=== PATIENT | female | born 1940 | race Caucasian/White ===

== ENCOUNTER 2018-03-04 08:43 | Day surgery (SDC) | payer MEDICARE, SELFPAY ==
[2018-03-04 09:42] VITALS: BMI 19.3
[2018-03-04] MEDS: PROPARACAINE 0.5% OPHTH SOL 2 DROPS EYE-OP (09:49)
[2018-03-04] MEDS: CATARACT EYE COMPOUND (10 DROPS/SYRINGE) 3 DROPS EYE-OP (09:50)
--- NOTE | 2018-03-04 10:03 | PM.PREOP ---
Pre-operative Note Interval Note Pre-op Check: History & Physical Reviewed by Physician
[2018-03-04] MEDS: CHONDROIDTIN/SOD HYALURONATE 1.05 ML SYRINGE INTRAOCULA (10:15)
[2018-03-04] MEDS: MOXIFLOXACIN OPHTH DROPS 3 ML BOTTLE 2 DROPS INJ (10:15)
[2018-03-04] MEDS: TRIAMCINOLONE 50 MG/5 ML VIAL INJ (10:15)
[2018-03-04] MEDS: LIDOCAINE JELLY 2% 5 ML 1 APPLIC TOP (10:16)
[2018-03-04] MEDS: TETRACAINE 0.5% OPHTH DROPS 15 ML 2 DROPS EYE-RIGHT (10:17)
[2018-03-04] MEDS: PHENYLEPHRINE/LIDOCAINE 3ML VIAL (OR) EYE-OP (10:17)
[2018-03-04] MEDS: BALANCED SALT IRRIG SOLN NO.2 500 ML, EPINEPHrine 1 MG IRR (10:18)
--- NOTE | 2018-03-04 10:25 | P.OP_ITS ---
Operative Date/Time/Diagnoses - Pre-op diagnosis: Cataract Right eye Post-op diagnosis: same Procedure & Clinicians Procedure: Cataract Surgery Same procedure as scheduled: Yes Surgeon: Perfecto Kline Anesthesia Type: MAC +/- and Sedation Operative Notes Procedure in detail: Patient brought to the operating suite. Tetracaine drops placed in the right eye. Patient was prepped and draped in sterile manner. Wire lid speculum was placed in the eye. Betadine drops were placed on the eye. This was irrigated. Lidocaine jelly was placed on the eye. A paracentesis port was created with a side-port blade. 0.1 mL 1% preservative free lidocaine was injected into the anterior chamber. The anterior chamber was deepened with viscoelastic. 2.6 mm keratome was used to create a temporal clear corneal incision. Cystotome and Utrata forceps were used to create continuous tear capsulorrhexis. Balanced salt solution was used to hydro dissect the nucleus. The phacoemulsification handpiece was inserted and the nucleus was removed using the stop and chop technique. The irrigation aspiration handpiece was inserted and the remaining cortex was removed. Anterior chamber was deepened with viscoelastic. An Gu ZCB00 intraocular lens with a power of 23.5 was injected into the capsular bag. Irrigation aspiration handpiece was inserted and the remaining viscoelastic was removed. Incision was hydrated with balanced salt solution and found to be leak free with pressure with Weck- Kasia sponges. 0.1 mL Vigamox injected anterior chamber. 0.3 mL Kenalog 10 mg was injected subconjunctivally. Lid speculum was removed. The patient left the operating room in excellent condition. Complications: none Condition: stable Disposition: same day surgery
[2018-03-04 10:38] VITALS: BP 151/58; PULSE 53; RESP 16; TEMP 36.6; O2SAT 100
--- NOTE | 2018-03-04 10:58 | SUR.PHASEII ---
pt had tea and applesauce.. no pain, no nausea..shiled on.. instructions reviewed.. pt dressed .. stable gait.. walker returned.. to waiting room awaiting taxi to her hotel.
== END 2018-03-04 10:55 | disposition home or self-care (01) ==
PROVIDERS: PCP Family Medicine; Visit Provider Ophthalmology
DX: H25.11 Age-related nuclear cataract, right eye (principal); F41.9 Anxiety disorder, unspecified; N18.6 End stage renal disease; Z99.2 Dependence on renal dialysis; J45.909 Unspecified asthma, uncomplicated
CPT/HCPCS: J0171; J2250; J3010; J3301

== ENCOUNTER 2018-08-04 16:01 | Emergency (ER) | payer MEDICARE, SELFPAY ==
[2018-08-04 16:04] VITALS: BP 170/47; PULSE 53; RESP 14; TEMP 36.7; O2SAT 100
--- NOTE | 2018-08-04 16:41 | ED.SKABFB ---
HPI - Skin/Abscess/Foreign Bdy General Chief complaint: Skin/Abscess/Foreign Body Stated complaint: dialyis shunt won't stop bleeding Time Seen by Provider: 08/04/18 16:03 Source: patient and EMS Mode of arrival: EMS Limitations: no limitations History of Present Illness HPI narrative: 78-year-old female with history of end-stage renal failure presents from the local dialysis center with a chief complaint of persistent bleeding once the fistula had been de accessed. They applied pressure but she continued to bleed for about 2 hr. She has become a bit fatigued. She had a complete run of her dialysis. She denies the use of blood thinners. Onset (ago): hour(s) Tetanus up to date: yes Location: LUE Relieving factors: none Exacerbating factors: none Related Data Home Medications Medication Instructions Recorded Confirmed ibuprofen 200 mg PO Q6HP PRN #0 04/15/12 08/04/18 alprazolam 2 mg PO DAILY 08/04/18 08/04/18 atorvastatin 40 mg PO DAILY 08/04/18 08/04/18 carvedilol 12.5 mg PO TID 08/04/18 08/04/18 diltiazem HCl [Cartia XT] 120 mg PO DAILY 08/04/18 08/04/18 furosemide 160 mg PO DAILY 08/04/18 08/04/18 Allergies Allergy/AdvReac Type Severity Reaction Status Date / Time iodine Allergy Intermediate Hives Verified 08/04/18 16:08 clams Allergy Unknown Verified 08/04/18 16:08 adhesive tape AdvReac Mild Verified 08/04/18 16:08 codeine AdvReac Mild Nausea Verified 08/04/18 16:08 hydrocodone AdvReac Mild Nausea Verified 08/04/18 16:08 propoxyphene AdvReac Mild Nausea Verified 08/04/18 16:08 Review of Systems Review of Systems All systems reviewed & are unremarkable except as noted in HPI and below Constitutional Denies chills, Denies fever(s), Denies lethargy and Denies weakness Eyes Denies change in vision, Denies eye discharge, Denies irritation and Denies loss of vision ENT Ears, Nose, Mouth, and Throat: Denies change in voice, Denies neck pain and Denies sore throat Cardiovascular Denies chest pain, Denies irregular heart rhythm, Denies lightheadedness, Denies palpitations, Denies dyspnea, Denies dyspnea on exertion and Denies orthopnea Respiratory Denies cough, Denies dyspnea, Denies dyspnea on exertion and Denies wheezing Gastrointestinal Gastrointestinal: Denies abdominal pain, Denies change in bowel habits, Denies diarrhea, Denies nausea and Denies vomiting Genitourinary Denies hematuria, Denies flank pain, Denies urinary incontinence and Denies urinary urgency Musculoskeletal Denies neck pain Integumentary/Breasts Denies pruritus, Denies erythema, Denies rash and Reports wounds Comments: Bleeding from AV fistula Neurologic Denies confusion, Denies loss of vision and Denies weakness Psychiatric Denies anxiety, Denies confusion, Denies depression, Denies homicidal ideation and Denies suicidal ideation Endocrine Denies palpitations Hematologic/Lymphatic Denies easy bruising Allergic/Immunologic Denies wheezing [facility] Surgical History Status post surgery (12/18/10) Social History household members: none Smoking Status: Never smoker Exam Narrative Exam Narrative: GEN: AOx3 and in mild distress EYES: Pupils are equal, round, and reactive to light and accommodation. Extraoccular muscles are intact bilaterally. There is no subconjunctival hemorrhage or exudate. CHEST: Lungs are clear to auscultation bilaterally and free of wheezes, rales, or rhonchi. Heart rate is regular rhythm, there are no murmurs, clicks, rubs, or gallops. There is no chest wall tenderness. ABD: Abdomen is soft and nontender. There is no guarding or rebound. Bowel sounds are normal in all 4 quadrants. There is no mass or organomegaly. EXT: Pressure device in place overlying AV fistula. Thrill present. Distal radius pulse intact, sensation intact, is cap refill less than 2 sec Full painless ROM of all extremities with no loss of sensation or strength. Pressure device removed and small, slow bleeding still noted. SKIN: Warm, pink, and dry. No erythema or rash Initial Vital Signs Initial Vital Signs: Vital Signs Temperature 98.0 F 08/04/18 16:04 Pulse Rate 53 L 08/04/18 16:04 Respiratory Rate 14 08/04/18 16:04 Blood Pressure 170/47 H 08/04/18 16:04 Pulse Oximetry 100 08/04/18 16:04 Procedures Laceration Repair Laceration 1: Site: upper extremity Side (If applicable): left Size (cm): 0.1 Description: other (needle puncture site on fistula) Skin layer closed with: nylon Size (cm): 5-0 Number of sutures: 1 Technique: simple, interrupted Course Orders Ordered: ED Orders 08/04/18 16:39 Complete Blood Count AUTO DIFF Stat Type and Screen Stat Reevaluation(s) Reevaluation #1: very superficial suture placed and hemostasis achieved. She was observed for an hour afterwards before DC Consultations Consultation #1: Call to Nephrology whom recommends either sure seal dressing, which we DO NOT, have or a superficial suture. Vital Signs - 8 hr 08/04/18 16:04 08/04/18 17:00 Temperature 98.0 F Pulse Rate 53 L 52 L Respiratory Rate 14 14 Blood Pressure 170/47 H Blood Pressure [Right Arm] 143/45 H Pulse Oximetry 100 99 MDM - Skin/Abscess/Foreign Bdy Lab Data Result diagrams: 08/04/18 16:39 Lab Results 08/04/18 08/04/18 Range/Units 16:39 16:39 WBC 5.7 (4.5-11.0) X10^3/uL RBC 3.38 L (4.0-5.2) X10^6/uL Hgb 11.2 L (12.0-16.0) g/dL Hct 32.7 L (36-46) % MCV 96.8 (80-100) fL MCH 33.2 (26-34) PG MCHC 34.3 (30-36) % RDW 13.6 (11.6-14.8) % Plt Count 157 (150-400) X10^3/uL Neut % (Auto) 62.0 (50-75) % Lymph % (Auto) 18.1 L (25-40) % [place] % (Auto) 12.6 (3-14) % Eos % (Auto) 5.8 H (2-4) % Baso % (Auto) 1.5 (0-2) % Neut # (Auto) 3600 ([id number]) /uL Blood Type O Positive Antibody Screen Negative Discharge Plan Departure Patient Disposition: Home Clinical Impression: Bleeding, Fistula Discharge Date/Time: 08/04/18 17:32 Interventions: ED Discharge Assessment Last Done: 08/04/18 17:29 Instructions: DI for Post-Surgical Bleeding Activity Restrictions/Additional Instructions: *You have been diagnosed with [ post dialysis bleeding from fistula ] *What to do: *Take medications as directed *Follow up with your primary care provider in 2-3 days, call for an appointment. Let them know you were seen in the Emergency Department and that we ask that you be seen in follow up *Return to ER if you should have any new, worsening or concerning symptoms, bleeding, increasing pain, numbness or tingling distal to your fistula Prescriptions: No Action ibuprofen 200 MG capsule 200 mg PO Q6HP PRN (Reason: Pain, Mild) Qty: 0 RF: 0 atorvastatin 40 mg tablet 40 mg PO DAILY RF: 0 carvedilol 12.5 mg tablet 12.5 mg PO TID RF: 0 alprazolam 1 mg tablet 2 mg PO DAILY RF: 0 furosemide 80 mg tablet 160 mg PO DAILY RF: 0 diltiazem HCl [Cartia XT] 120 mg capsule,extended release 24hr 120 mg PO DAILY RF: 0 Referrals: Carrillo Greene MD [Primary Care Provider] -
[2018-08-04 16:54] LABS: Add Manual Diff / Slide Review NO; Basophils Percent Auto 1.5 % (0-2); Eosinophils Percent Auto 5.8 % (2-4); Hematocrit 32.7 % (36-46); Hemoglobin 11.2 g/dL (12.0-16.0); Lymphocytes Percent Auto 18.1 % (25-40); Mean Corpuscular HGB Conc 34.3 % (30-36); Mean Corpuscular Hemoglobin 33.2 PG (26-34); Mean Corpuscular Volume 96.8 fL (80-100); Monocytes Percent Auto 12.6 % (3-14); Neutrophils Absolute Auto 3600 /uL (3000-5900); Platelet Count 157 X10^3/uL (150-400); Red Blood Cell Count 3.38 X10^6/uL (4.0-5.2); Red Cell Distribution Width 13.6 % (11.6-14.8); White Blood Cell Count 5.7 X10^3/uL (4.5-11.0)
[2018-08-04 17:00] VITALS: BP 143/45; PULSE 52; RESP 14; O2SAT 99
--- NOTE | 2018-08-04 17:18 | PC.NURSE ---
Pt had fistula de-accessed at 1400 today. Every time she took bandage off, she saw spurting blood come out. Called EMS and arrives with pressure clamp in place. Feels lightheaded but denies other symptoms.
--- NOTE | 2018-08-04 17:19 | CM.MNRNOTE ---
Left radial pulse weaker than right side. Bruit and thrill present and strong in left arm.
== END 2018-08-04 17:32 | disposition home or self-care (01) ==
PROVIDERS: Emergency Provider Emergency Medicine; PCP Family Medicine
DX: T82.838A Hemorrhage due to vascular prosthetic devices, implants and grafts, initial encounter (principal)
CPT/HCPCS: 36415; 85025; 86850; 86900; 86901; 99283

== ENCOUNTER → 2022-06-18 07:14 | Outpatient (CLI) | payer MEDICARE, SELFPAY ==
[2022-06-18 21:02] LABS: COVID19 - ORCAS (NP or Nasal) Negative (Negative)
== END ==
PROVIDERS: PCP Family Medicine; Visit Provider Family Medicine
DX: Z20.822 Contact with and (suspected) exposure to COVID-19 (principal)
CPT/HCPCS: C9803; U0003